=== PATIENT | female | born 1935 | race Caucasian/White ===

== ENCOUNTER 2019-03-28 18:37 | Observation (INO) | payer MEDICARE ==
[~2019-03-28] VITALS: Ht 153.4 cm; Wt 66.7 kg
[2019-03-28] MEDS ORDERED: DONNATAL/LIDOCAINE/MAALOX 30 ML SUSP PO ONE (19:15)
[2019-03-28] MEDS ORDERED: BACLOFEN10 MG PO (19:24)
[2019-03-28] MEDS ORDERED: CARBAMAZEPINE200 MG PO (19:24)
[2019-03-28] MEDS ORDERED: DIGOXIN125 MCG PO (19:24)
[2019-03-28] MEDS ORDERED: FLONASE ALLERG9.9 ML (19:24)
[2019-03-28] MEDS ORDERED: DILTIAZEM HCL60 MG PO (19:24)
[2019-03-28] MEDS ORDERED: DILTIAZEM 24HR120 M1 (19:24)
[2019-03-28] MEDS ORDERED: ACETAMINOPHEN500 M1 (19:24)
[2019-03-28] MEDS ORDERED: RESTASIS1 EACH (19:24)
[2019-03-28] MEDS ORDERED: KETOCONAZOLE15 GM (19:32)
[2019-03-28] MEDS ORDERED: NITROGLYCERIN0.4 MG SL (19:32)
[2019-03-28] MEDS ORDERED: LEVOTHYROXINE112 MCG PO (19:32)
[2019-03-28] MEDS ORDERED: PRESERVISION A1 EAC2 (19:32)
[2019-03-28] MEDS ORDERED: GABAPENTIN100 MG (19:32)
[2019-03-28] MEDS ORDERED: FUROSEMIDE40 MG PO (19:32)
[2019-03-28] MEDS ORDERED: WARFARIN SODIU2.5 MG PO (19:32)
[2019-03-28] MEDS ORDERED: ISOSORBIDE MONO30 MG PO (19:32)
[2019-03-28] MEDS ORDERED: MEDROL2 MG (19:32)
[2019-03-28] MEDS ORDERED: PRAVASTATIN SOD20 MG (19:32)
--- NOTE | 2019-03-28 19:35 | Diagnostic Imaging Report ---
EXAMINATION: CXR 1 V - HOPD INDICATION: Chest pain. COMPARISON: None FINDINGS: TUBES and LINES: None. Dual lead left-sided cardiac pacemaker. LUNGS: Lungs are well inflated. There are bibasilar atelectasis. There is no evidence of pneumonia or pulmonary edema. PLEURA: No pleural effusion or pneumothorax. HEART AND MEDIASTINUM: Cardiac size is mildly enlarged. There are atherosclerotic calcifications within the aorta. BONES AND SOFT TISSUES: No acute osseous lesion. Soft tissues are unremarkable. UPPER ABDOMEN: No free air under the diaphragm. IMPRESSION: No acute thoracic abnormality. Signed by: Dr. Cass Cabrera M.D. on 03/28/2019 7:32 PM
[2019-03-28] MEDS ORDERED: BELLADONNA ALK/PHENOBARBITAL 5 ML UDC ONE (19:44)
[2019-03-28] MEDS ORDERED: MAGNESIUM/ALUMINUM/SIMETHICONE 30 ML UDC ONE (19:44)
[2019-03-28] MEDS ORDERED: LIDOCAINE VISC 2% SOLN 15 ML UDC ONE (19:44)
--- NOTE | 2019-03-28 20:05 | NUR ---
pt states she feels better after the GI cocktail,
[2019-03-28] MEDS ORDERED: NITROGLYCERIN 0.4 MG SUBL SL PRN (20:30)
[2019-03-28] MEDS ORDERED: ASPIRIN 81 MG CHEW TAB PO ONE (20:30)
[2019-03-28] MEDS ORDERED: ONDANSETRON HCL INJ 2MG/ML 2ML 2 MG/ML VIAL IV PRN (20:30)
[2019-03-28] MEDS ORDERED: SODIUM CHLORIDE FLUSH 10 ML SYR INJ PRN (20:30)
--- OUTSIDE RECORDS SUMMARY | 2019-03-28 20:31 | XMS REPORT ---
Author Author [facility] Address Unknown Phone Unavailable Care Team Providers Care Drug Department Worker Name Role Phone Maricarmen EVANS Unavailable Unavailable Payers Payer Name Policy Type Policy Number Effective Date Expiration Date Problems This patient has no known problems. Allergies, Adverse Reactions, Alerts Allergy Name Allergy Type Status Severity Reaction(s) Onset Date Inactive Date Treating Clinician Comments tramadol DA Active U 2018-04-01 00:00:00 rivaroxaban DA Active U 2018-04-01 00:00:00 meperidine DA Active U 2016-12-11 00:00:00 atorvastatin DA Active U 2016-12-11 00:00:00 Medications This patient has no known medications. Results Test Description Test Time Test Comments Text Results Atomic Results Result Comments CXR 1 [facility] 2019-03-28 19:30:00 [place] [address] Patient Name: SIM AVILA MR #: [id number] : 1935 Age/Sex: 84/F Req #: [id number] Adm Physician: Ordered by: SAMEER EVANS MD Report #: [id number] Location: [facility] Room/Bed: Procedure: [id number] HOPD/CXR 1 VEW - HOPD Exam Date: 03/28/19 Exam Time: 1918 REPORT STATUS: Signed EXAMINATION: CXR 1 V - HOPD INDICATION: Chest pain. COMPARISON: None FINDINGS: TUBES and LINES: None. Dual lead left-sided cardiac pacemaker. LUNGS: Lungs are well inflated. There are bibasilar atelectasis. There is no evidence of pneumonia or pulmonary edema. PLEURA: No pleural effusion or pneumothorax. HEART AND MEDIASTINUM: Cardiac size is mildly enlarged. There are atherosclerotic calcifications with in the aorta. BONES AND SOFT TISSUES: No acute osseous lesion. Soft tissues are unremarkable. UPPER ABDOMEN: No free air under the diaphragm. IMPRESSION: No acute thoracic abnormality. Signed by: Dr. Cass Bunch M.D. on 03/28/2019 7:32 PM Dictated By: JASBIR BUNCH MD, MD 31 Transcribed By: STEPHANIE on 03/28/191931 COPY TO: SAMEER EVANS MD - XR FOOT 3 + V LT 2018-04-01 13:55:00 FAX: Rony Mills DO [place]: St: REG Name: SIM AVILA [facility] : 1935 Age/S: 83/F [address] [place], [place] [address] Unit #: [id number] Loc: [place] [address] Phys: Rony Foy DO Acct: [id number] Dis Date: Status: REG ER PHONE #: [phone] Exam Date: 04/01/2018 1322 FAX #: [phone] Reason: LATERAL PAIN EXAMS: CPT CODE: [id number] XR FOOT 3 + [place] [address] Three-view left foot, 3 view left ankle HISTORY: Left ankle pain. No comparisons. FINDINGS: Left ankle: No acute fracture or dislocation. There is medial malleolar soft tissue swelling. Ankle mortise is intact. Achilles spurring noted. Left foot: No acute fracture, dislocation, or joint space abnormality. Bones are osteopenic. IMPRESSION: 1. No acute osseous abnormality of the left foot or left ankle. 2. Achilles spurri ng. 3. Medial malleolar soft tissue swelling, nonspecific. SL:01 at 8670 Reported and signed by: Sameer Sandhu M.D. CC: Rony Foy DO Technologist: RT Natasha(Klaudia) Trnscrd Date/Time/By: 04/01/2018 (7662) : By: Kristian [facility] Print D/T: S: 04/01/2018 (6288) PAGE 1 Signed Report - XR ANKLE 3 + V LT 2018-04-01 13:55:00 FAX: Rony Mills DO [place]: St: REG Name: SIM AVILA [facility] : 1935 Age/S: 83/F [address] [place] [address] Unit #: [id number] Loc: [place] [address] Phys: Rony Foy DO Acct: [id number] Dis Date: Status: REG ER PHONE #: [phone] Exam Date: 04/01/2018 1322 FAX #: [phone] Reason: LATERAL PAIN EXAMS: CPT CODE: [id number] XR ANKLE 3 + [place] [address] Three-view left foot, 3 view left ankle HISTORY: Left ankle pain. No comparisons. FINDINGS: Left ankle: No acute fracture or dislocation. There is medial malleolar soft tissue swelling. Ankle mortise is intact. Achilles spurring noted. Left foot: No acute fracture, dislocation, or joint space abnormality. Bones are osteopenic. IMPRESSION: 1. No acute osseous abnormality of the left foot or left ankle. 2. Achilles spurri ng. 3. Medial malleolar soft tissue swelling, nonspecific. SL:01 at 0000 Reported and signed by: Sameer Sandhu M.D. CC: Rony Foy DO Technologist: RT Natasha(Klaudia) Trnscrd Date/Time/By: 04/01/2018 (8274) : By: Kristian Orig Print D/T: S: 04/01/2018 (4617) PAGE 1 Signed Report
--- NOTE | 2019-03-28 20:40 | NUR ---
patient arrived to the unit, no report.
--- NOTE | 2019-03-28 20:45 | NUR ---
Report was received from sarah Burroughs. patient came in for abdominal pain.
[2019-03-28 20:50] VITALS: BP 121/76
--- NOTE | 2019-03-28 20:50 | NUR ---
attempted to call report placed on hold
--- NOTE | 2019-03-28 20:55 | NUR ---
attempted to call report to Jonh again placed on hold, ems left with patient. report given to ems. pt stable at time of transfer
--- NOTE | 2019-03-28 21:03 | NUR ---
attempted to call report placed on hold waiting for Jonh to come to phone.
--- NOTE | 2019-03-28 21:30 | NUR ---
Md Hastings was made aware of the arrival of the patient and inform of patient's home medications and ordered that the due medications can be administered, patient took her home medications. Medications have being listed and needs reconciliation.
[2019-03-28 22:54] VITALS: BP 125/70
[2019-03-29] VITALS: BP 103/62
[2019-03-29 04:00] VITALS: BP 110/55
[2019-03-29 05:44] LABS: CREATINE KINASE MB 0.8 ng/mL (0-5.0)
[2019-03-29 06:02] LABS: CHOL/HDL RATIO 4.7 (3.0-3.6)
[2019-03-29 07:46] VITALS: BP 118/57
[2019-03-29] MEDS ORDERED: ASPIRIN 81 MG ENTERIC COATED PO SCH (09:00)
[2019-03-29] MEDS ORDERED: ASPIRIN 81 MG CHEW TAB PO ONE (09:45)
[2019-03-29 10:43] LABS: CREATINE KINASE 47 IU/L (29-168)
--- NOTE | 2019-03-29 11:42 | NUR ---
MD SPENCE INTO SEE PT, DISCUSSED POC
[2019-03-29 12:13] VITALS: BP 134/68
[2019-03-29] MEDS ORDERED: ONDANSETRON HCL 4 MG ORAL DISINTEGRATING TAB PO PRN (13:00)
--- NOTE | 2019-03-29 15:12 | NUR ---
DISCHARGE INSTRUCTIONS REVIEWED WITH PT, VERBALIZED UNDERSTANDING, WHEELED OFF UNIT FOR DISCHARGE, NO CHANGE IN CONDITION
--- NOTE | 2019-03-29 18:59 | Consultation ---
DATE OF CONSULTATION: 03/29/2019 REASON FOR CONSULTATION: Chest discomfort. HISTORY OF PRESENT ILLNESS: An 84-year-old woman with history of hypertension, paroxysmal atrial fibrillation, sick sinus syndrome, status post [employer] pacemaker implantation, presents with complaints of epigastric and lower midsternal chest discomfort, radiating to the back. Onset while at rest, lying down after taking pills earlier that day. Symptoms have since resolved without any recurrence. There are no exertional symptoms or association with exertion of her discomfort. She also denies association with position or inspiration. REVIEW OF SYSTEMS: A 12-system review is negative except for as noted above. PAST MEDICAL HISTORY: As per HPI. SOCIAL HISTORY: No reported history of smoking, alcohol, or drugs. FAMILY HISTORY: Noncontributory. PHYSICAL EXAMINATION: VITAL SIGNS: Temperature 97.4, heart rate 79, blood pressure 118/57, respiratory rate 16, and O2 saturation 97%. BMI 28. GENERAL: No acute distress. Alert. NECK: No JVD. No carotid bruit. CHEST: Clear to auscultation. CARDIOVASCULAR: Regular rate and rhythm. Normal S1 and S2. No S3. No S4. No murmurs. No rubs. ABDOMEN: Soft, nontender, and nondistended. Bowel sounds positive. EXTREMITIES: No cyanosis, clubbing, or edema. Warm distal extremities. CARDIOVASCULAR MEDICATIONS: Reviewed. STUDIES: Reviewed. Troponin I 0.003. Additional troponin pending. Triglycerides 129, total cholesterol 147, LDL 90, and HDL 31. Chest x-ray, no acute thoracic abnormalities. ASSESSMENT AND PLAN: 1. An 84-year-old woman presents with atypical chest pain/epigastric discomfort following pill intake. 2. History of paroxysmal atrial fibrillation and sick sinus syndrome, status post [employer] pacemaker implantation and hypertension. RECOMMEND: Obtain additional set of cardiac enzymes and monitor in a.m. I have offered inpatient stress test, however, the patient declined and preferred to follow up outpatient with her ranch cook. She did see her ranch cook yesterday in the morning prior to symptom onset and has established care. She reports a prior stress test done approximately 8 months ago at that time reassuring. Recommend continue current cardiovascular medications. Jose Dexter MD AFV/DYLAN /[id number]
--- NOTE | 2019-03-30 01:01 | Discharge Summary ---
PRIMARY CARE DOCTOR: Dr. No Saha. FINAL DIAGNOSIS: Atypical chest pain, likely due to GI etiology. SECONDARY DIAGNOSES: 1. Chronic atrial fibrillation. 2. Old stroke. 3. Dyslipidemia. 4. Hypothyroidism. CONSULTANTS: Dr. Casarez, Cardiology. PROCEDURES/STUDIES PERFORMED: Echocardiogram. HISTORY: Per H and P. HOSPITAL COURSE: I have discussed this case in detail with Dr. Casarez. Stress test was offered, however, the patient preferred to be done as an outpatient. There is no evidence of acute myocardial infarction. The patient at this time is completely symptom free. Therefore, we will let her go home later today if her echocardiogram is unremarkable. CONDITION ON DISCHARGE: Stable. DISCHARGE MEDICATIONS: Please see medication reconciliation form. I have also updated her primary care doctor about this hospitalization. MD JUDY Goins/DYLAN /[id number] cc: [facility]
== END 2019-03-29 14:16 | disposition home or self-care (01) ==
LOC: FSED 18:37 → ERHOLD 20:27 → MED/SURG 21:18
PROVIDERS: ADMIT Internal Medicine; ATTEND Internal Medicine
DX: R07.89 Other chest pain (principal); H66.3X1 Other chronic suppurative otitis media, right ear; I10 Essential (primary) hypertension; E78.5 Hyperlipidemia, unspecified; I48.20 Chronic atrial fibrillation, unspecified; Z86.73 Personal history of transient ischemic attack (TIA), and cerebral infarction without residual deficits; Z82.49 Family history of ischemic heart disease and other diseases of the circulatory system; Z95.0 Presence of cardiac pacemaker; E03.9 Hypothyroidism, unspecified
CPT/HCPCS: 36415; 71045; 80053; 80061; 81003; 82550; 82553 ×2; 84484 ×2; 85025; 85610; 93005 ×2; 93306; 99284; G0378 ×2; J2405